=== PATIENT | male | born 1970 | race Two or more races ===

== ENCOUNTER 2017-03-05 11:14 | Emergency (ER) | payer MEDICAID ==
[~2017-03-05] VITALS: Ht 167.6 cm; Wt 141.5 kg
--- NOTE | 2017-03-05 11:41 | Emergency Room Report ---
History of Present Illness General Chief Complaint: Male Urogenital Problems Source: Patient Present Illness HPI Patient presents with complaints of tingling when he urinates Patient has not seen any obvious discharge however there is a different sensation when he urinates Denies any fevers or chills denies any abdominal pain Denies any chest pain shortness of breath patient reports that he was recently sexually active with his ex- And soon after that symptoms started several days ago Denies any testicular pain Allergies: Coded Allergies: ANIMAL DANDER (Verified Allergy, Unknown, 03/05/17) Patient History Past Medical History: see triage record Pertinent Family History: none Reviewed Nursing Documentation: PMH: Agreed, PSxH: Agreed Nursing Documentation-PMH Past Medical History: No Stated History Review of Systems All Other Systems: negative except mentioned in HPI Physical Exam Vital Signs Date Time Temp Pulse Resp B/P (MAP) Pulse Ox O2 Delivery O2 Flow Rate FiO2 03/05/17 11:28 98.4 89 21 149/96 98 Room Air Sp02 EP Interpretation: reviewed, normal General Appearance: well appearing, no apparent distress Head: normocephalic, atraumatic Eyes: bilateral eye PERRL, bilateral eye EOMI ENT: normal pharynx Neck: supple Respiratory: lungs clear Gastrointestinal: non tender, soft Genitourinary: no CVA tenderness Musculoskeletal: normal inspection Neurologic: alert, oriented x3, responsive Psychiatric: mood/affect normal Skin: normal color, no rash Lymphatic: no adenopathy Medical Decision Making Diagnostic Impression: Primary Impression: Urethritis ER Course Patient presents with signs and symptoms of urethritis Patient was instructed that he will require follow up with [facility] clinic given the lack of appropriate followup and intervention through the emergency room standpoint Patient will be treated clinically however has not had any further testing performed Does not appear septic or toxic has had a medical screening evaluation is stable for close followup Last Vital Signs Date Time Temp Pulse Resp B/P (MAP) Pulse Ox O2 Delivery O2 Flow Rate FiO2 03/05/17 11:28 98.4 89 21 149/96 98 Room Air Status: improved Disposition: HOME, SELF-CARE Condition: Improved Scripts No Active Prescriptions or Reported Meds Additional Instructions: Patient is provided with the discharge instructions notified to follow up with primary doctor in the next 2-3 days otherwise return to the er with any worsening symptoms. Please note that this report is being documented using [employer] technology. This can lead to erroneous entry secondary to incorrect interpretation by the dictating instrument. NUNO MALONEY D.O. Mar 05, 2017 11:41
[2017-03-05] MEDS ORDERED: DOXYCYCLINE MO100 MG ORAL (11:42)
[2017-03-05] MEDS ORDERED: Azithromycin 250mg tab ORAL ONE (11:45)
[2017-03-05 12:21] VITALS: BP 126/91
== END 2017-03-05 12:20 | disposition home or self-care (01) ==
LOC: EMR 11:29
DX: N34.2 Other urethritis (principal)
CPT/HCPCS: 96372; 99283; J0696